=== PATIENT | female | born 1975 | race Caucasian/White ===

== ENCOUNTER 2018-03-21 09:00 | Inpatient (IN) | payer OTHER ==
[~2018-03-21 09:00] MED LIST: OXYTOCIN 30 UNITS/LR 500 ML BAG IV
[2018-03-21] MEDS ORDERED: CARBOPROST 250 MCG INJ IM ×2 (10:30→21:30)
[2018-03-21] MEDS ORDERED: METHYLERGONOVINE 0.2 MG INJ IM ×2 (10:30→21:30)
[2018-03-21] MEDS ORDERED: MISOPROSTOL 200 MCG TAB PR ×2 (10:30→21:30)
[2018-03-21] MEDS ORDERED: CEFAZOLIN 2 GM/50 ML (PMX) 50 ML IV (10:30)
[2018-03-21] MEDS ORDERED: OXYTOCIN 30 UNITS/LR 500 ML IV ×3 (10:30→21:30)
[2018-03-21 11:35] LABS: ADD MAN DIFF? NO
[2018-03-21 11:37] LABS: BASOPHIL # 0.1 10^3/ul (0.0-0.1); BASOPHILS % 0.6 % (0.0-2.0); EOSINOPHILS # 0.3 10^3/ul (0.0-0.5); EOSINOPHILS % 3.3 % (0.0-7.0); HEMATOCRIT 31.9 % (37.0-47.0); HEMOGLOBIN 10.5 g/dl (12.0-16.0); LYMPHOCYTES # 1.5 10^3/ul (0.8-2.9); LYMPHOCYTES % 17.4 % (15.0-51.0); MEAN CORPUSCULAR HEMOGLOBIN 29.3 pg (29.0-33.0); MEAN CORPUSCULAR HGB CONC 32.9 g/dl (32.0-37.0); MEAN CORPUSCULAR VOLUME 89.1 fl (82.0-101.0); MEAN PLATELET VOLUME 11.7 fl (7.4-10.4); MONOCYTE # 0.5 10^3/ul (0.3-0.9); MONOCYTES % 5.5 % (0.0-11.0); NEUTROPHIL # 6.1 10^3/ul (1.6-7.5); NEUTROPHILS % 72.7 % (39.0-77.0); PLATELET COUNT 239 10^3/UL (140-415); RED BLOOD COUNT 3.58 10^6/ul (4.20-5.40); RED CELL DISTRIBUTION WIDTH 13.9 % (11.5-14.5)
[2018-03-21 11:37] LABS: WHITE BLOOD COUNT 8.4 10^3/ul (4.8-10.8)
[2018-03-21 12:04] LABS: INR 0.96; PROTIME 12.9 Sec (11.9-14.9)
[2018-03-21] MEDS: LACTATED RINGER'S 1,000 ML IV (12:36)
[2018-03-21 13:40] LABS: PARTIAL THROMBOPLASTIN TIME 27.7 Sec (25.0-35.0)
[2018-03-21] MEDS ORDERED: BUPIVACAINE 0.75%/DEXT (SPINAL) 2 ML INJ (14:59)
[2018-03-21 15:24] LABS: RAPID PLASMA REAGIN NONREACTIVE (NR)
[2018-03-21] MEDS ORDERED: ONDANSETRON 4 MG INJ IV (16:30)
[2018-03-21] MEDS ORDERED: HYDROmorphONE 0.5 MG/0.5 ML SYG IV ×2 (16:30)
[2018-03-21] MEDS ORDERED: KETOROLAC 30 MG INJ IV (16:30)
[2018-03-21] MEDS ORDERED: ZOLPIDEM 5 MG TAB PO (16:30)
[2018-03-21] MEDS ORDERED: NALOXONE (0.4 MG/ML) INJ IV (16:30)
[2018-03-21] MEDS: OXYTOCIN 30 UNITS/LR 500 ML IV ×3 (16:55→21:07)
[2018-03-21] MEDS ORDERED: MIDAZOLAM 1 MG/ML 2 ML INJ (17:11)
[2018-03-21] MEDS ORDERED: DEXAMETHASONE 4 MG/ML 1 ML INJ (17:11)
[2018-03-21] MEDS ORDERED: PHENYLephrine (100 MCG/ML) 5ML SYG (17:11)
[2018-03-21] MEDS ORDERED: FENTAnyl 50 MCG/ML VIAL (17:11)
[2018-03-21] MEDS ORDERED: morphine SULFATE/PF (10 MG/10 ML) INJ (17:11)
[2018-03-21] MEDS ORDERED: FAMOTIDINE 20 MG INJ (17:11)
[2018-03-21] MEDS ORDERED: LIDOCAINE 1.5%/EPI MPF (SDV) 30 ML VIAL (17:11)
[2018-03-21] MEDS ORDERED: ONDANSETRON 4 MG INJ (17:11)
[2018-03-21] MEDS ORDERED: DIPHENHYDRAMINE 50 MG INJ (18:45)
[2018-03-21] MEDS: DIPHENHYDRAMINE 50 MG INJ IV (18:47)
[2018-03-21] MEDS ORDERED: HYDROCODONE/APAP (5/325) TAB PO ×2 (21:30)
[2018-03-21] MEDS ORDERED: OXYCODONE/ACETAMINOPHEN (5/325) TAB PO ×2 (21:30)
[2018-03-21] MEDS: CEFAZOLIN 1 GM/50 ML (PMX) 50 ML IVPB (21:58)
[2018-03-22] MEDS: OXYTOCIN 30 UNITS/LR 500 ML IV ×2 (00:49→05:35)
[2018-03-22] MEDS: DIPHENHYDRAMINE 50 MG INJ IV (06:51)
[2018-03-22 06:58] LABS: ADD MAN DIFF? NO
[2018-03-22 07:02] LABS: BASOPHIL # 0.1 10^3/ul (0.0-0.1); BASOPHILS % 0.4 % (0.0-2.0); EOSINOPHILS % 0.3 % (0.0-7.0); HEMATOCRIT 30.4 % (37.0-47.0); HEMOGLOBIN 10.1 g/dl (12.0-16.0); LYMPHOCYTES # 2.1 10^3/ul (0.8-2.9); LYMPHOCYTES % 14.7 % (15.0-51.0); MEAN CORPUSCULAR HEMOGLOBIN 29.3 pg (29.0-33.0); MEAN CORPUSCULAR HGB CONC 33.2 g/dl (32.0-37.0); MEAN CORPUSCULAR VOLUME 88.1 fl (82.0-101.0); MEAN PLATELET VOLUME 11.8 fl (7.4-10.4); MONOCYTES % 6.8 % (0.0-11.0); NEUTROPHIL # 10.8 10^3/ul (1.6-7.5); NEUTROPHILS % 77.4 % (39.0-77.0); PLATELET COUNT 220 10^3/UL (140-415); RED BLOOD COUNT 3.45 10^6/ul (4.20-5.40); RED CELL DISTRIBUTION WIDTH 13.5 % (11.5-14.5)
[2018-03-22] MEDS: SENNA/DOCUSATE NA (8.6MG/50MG) TAB PO ×2 (08:16→21:00)
[2018-03-22] MEDS: IBUPROFEN 600 MG TAB PO (17:54)
[2018-03-23] MEDS: OXYTOCIN 30 UNITS/LR 500 ML IV ×10 (00:50→21:07)
[2018-03-23] MEDS: IBUPROFEN 600 MG TAB PO ×5 (06:00→23:36)
[2018-03-23 07:02] LABS: ADD MAN DIFF? NO
[2018-03-23 07:12] LABS: WHITE BLOOD COUNT 11.3 10^3/ul (4.8-10.8)
[2018-03-23 07:12] LABS: BASOPHIL # 0.1 10^3/ul (0.0-0.1); BASOPHILS % 0.4 % (0.0-2.0); EOSINOPHILS # 0.3 10^3/ul (0.0-0.5); EOSINOPHILS % 2.5 % (0.0-7.0); HEMATOCRIT 32.6 % (37.0-47.0); HEMOGLOBIN 10.4 g/dl (12.0-16.0); LYMPHOCYTES # 2.5 10^3/ul (0.8-2.9); LYMPHOCYTES % 21.8 % (15.0-51.0); MEAN CORPUSCULAR HEMOGLOBIN 28.9 pg (29.0-33.0); MEAN CORPUSCULAR HGB CONC 31.9 g/dl (32.0-37.0); MEAN CORPUSCULAR VOLUME 90.6 fl (82.0-101.0); MEAN PLATELET VOLUME 11.4 fl (7.4-10.4); MONOCYTE # 0.8 10^3/ul (0.3-0.9); NEUTROPHIL # 7.7 10^3/ul (1.6-7.5); NEUTROPHILS % 67.9 % (39.0-77.0); PLATELET COUNT 253 10^3/UL (140-415); RED CELL DISTRIBUTION WIDTH 14.2 % (11.5-14.5)
[2018-03-23] MEDS: SENNA/DOCUSATE NA (8.6MG/50MG) TAB PO ×2 (08:34→21:25)
[2018-03-23] MEDS: LANOLIN 7 GM TUBE TOP (23:36)
[2018-03-24] MEDS: IBUPROFEN 600 MG TAB PO ×2 (05:36→11:14)
[2018-03-24] MEDS: SENNA/DOCUSATE NA (8.6MG/50MG) TAB PO (09:00)
[2018-03-24] MEDS: ACETAMINOPHEN 500 MG TAB PO (12:45)
[2018-03-24] MEDS: DIPHTH/TET/ACEL PERTUSS (ADULT) 0.5 ML VIAL IM* (14:13)
== END 2018-03-24 16:00 | disposition home or self-care (01) | DRG 766 ==
LOC: L-D 09:00 → PP1 20:20
PROVIDERS: Obstetrics & Gynecology
PROC: 10D00Z1 Extraction of Products of Conception, Low, Open Approach (ICD-10-PCS; principal; 2018-03-21 12:30)
PROC: 0UL70ZZ Occlusion of Bilateral Fallopian Tubes, Open Approach (ICD-10-PCS; 2018-03-21 12:30)
PROC: 3E033VJ Introduction of Other Hormone into Peripheral Vein, Percutaneous Approach (ICD-10-PCS; 2018-03-21 12:30)
DX: O75.82 Onset (spontaneous) of labor after 37 completed weeks of gestation but before 39 completed weeks gestation, with delivery by (planned) cesarean section (principal); Z30.2 Encounter for sterilization; Z3A.39 39 weeks gestation of pregnancy; Z37.0 Single live birth
CPT/HCPCS: 85025; 85610; 85730; 86592; 86850; 86900; 86901; 88302; 99464

== ENCOUNTER 2019-02-18 10:00 | Emergency (ER) | payer OTHER ==
[2019-02-18] MEDS: ONDANSETRON 4 MG INJ IV (12:22)
[2019-02-18] MEDS: HYDROmorphONE 1 MG/ML SYG IV (12:22)
[2019-02-18 12:36] LABS: ADD MAN DIFF? NO
[2019-02-18 12:37] LABS: BASOPHIL # 0.1 10^3/ul (0.0-0.1); BASOPHILS % 0.4 % (0.0-2.0); EOSINOPHILS # 0.2 10^3/ul (0.0-0.5); EOSINOPHILS % 1.2 % (0.0-7.0); HEMATOCRIT 37.9 % (37.0-47.0); LYMPHOCYTES # 1.9 10^3/ul (0.8-2.9); MEAN CORPUSCULAR HEMOGLOBIN 25.9 pg (29.0-33.0); MEAN CORPUSCULAR HGB CONC 31.7 g/dl (32.0-37.0); MEAN CORPUSCULAR VOLUME 81.9 fl (82.0-101.0); MEAN PLATELET VOLUME 11.8 fl (7.4-10.4); MONOCYTE # 0.6 10^3/ul (0.3-0.9); MONOCYTES % 3.6 % (0.0-11.0); NEUTROPHIL # 13.2 10^3/ul (1.6-7.5); NEUTROPHILS % 82.4 % (39.0-77.0); PLATELET COUNT 288 10^3/UL (140-415); RED BLOOD COUNT 4.63 10^6/ul (4.20-5.40); RED CELL DISTRIBUTION WIDTH 13.3 % (11.5-14.5)
[2019-02-18 12:54] LABS: ALANINE AMINOTRANSFERASE 30 IU/L (13-69); ALBUMIN 4.6 g/dl (3.3-4.9); ALBUMIN/GLOBULIN RATIO 1.35; ALKALINE PHOSPHATASE 108 IU/L (42-121); ANION GAP 11 (5-13); ASPARTATE AMINO TRANSFERASE 23 IU/L (15-46); BILIRUBIN,INDIRECT 0.6 mg/dl (0-1.1); BILIRUBIN,TOTAL 0.6 mg/dl (0.2-1.3); BLOOD UREA NITROGEN 16 mg/dl (7-20); CALCIUM 9.8 mg/dl (8.4-10.2); CARBON DIOXIDE 23 mmol/L (21-31); CHLORIDE 106 mmol/L (97-110); CREATININE 0.38 mg/dl (0.44-1.00); Estimated GFR > 60 mL/min (>60); GLUCOSE 99 mg/dl (70-220); LIPASE 60 U/L (23-300); POTASSIUM 3.8 mmol/L (3.5-5.1); SODIUM 140 mmol/L (135-144)
== END 2019-02-18 16:42 | disposition home or self-care (01) ==
LOC: E/R 10:00
DX: K80.20 Calculus of gallbladder without cholecystitis without obstruction (principal)
CPT/HCPCS: 36415; 76705; 80053; 83690; 85025; 96374; 96375; 99285-25